=== PATIENT | female | born 1960 | race Caucasian/White ===

== ENCOUNTER 2024-08-15 19:39 | Emergency (ER) | payer OTHER ==
[~2024-08-15] VITALS: Ht 157.4 cm; Wt 63.5 kg
[2024-08-15] MEDS ORDERED: Ondansetron Hydrochloride 4 MG TAB SL ONE (20:25)
[2024-08-15] MEDS ORDERED: Acetaminophen/Hydrocodone 5 MG/325 MG TABLET PO ONE ×2 (20:25→21:25)
[2024-08-15] MEDS ORDERED: HYDROCODONE-AC1 EAC1 PO (21:18)
== END 2024-08-15 21:25 | disposition home or self-care (01) ==
LOC: ED 19:39
DX: S82.852A Displaced trimalleolar fracture of left lower leg, initial encounter for closed fracture (principal); S82.402A Unspecified fracture of shaft of left fibula, initial encounter for closed fracture; Z88.2 Allergy status to sulfonamides; Z88.8 Allergy status to other drugs, medicaments and biological substances; W22.03XA Walked into furniture, initial encounter; Y93.89 Activity, other specified; Y92.89 Other specified places as the place of occurrence of the external cause; Y99.8 Other external cause status

== ENCOUNTER 2024-08-22 17:15 | Emergency (ER) | payer OTHER ==
[~2024-08-22] VITALS: Wt 74.8 kg
[~2024-08-22 17:15] MED LIST changes: -ACETAMINOPHEN 100 ML IV ONE; -Bupivacaine Hydrochloride/Ep2 30 ML VIAL ONE; -Dexamethasone Sodium Phospha 4 MG/ML VIAL IV ONE; -Lactated Ringer's Solution 1,000 ML IV ONE; -Lactated Ringer's Solution 1,000 ML IV SCH; -Lidocaine Hydrochloride 2% 5 ML SDV IM ONE; -Midazolam Hydrochloride 2 MG/2 ML VIAL IV ONE; -Ondansetron Hydrochloride 4 MG/2 ML VIAL IV ONE; -PROPOFOL 200 MG/20 ML VIAL IV ONE; -Ropivacaine Hydrochloride 5 MG/ML 20 ML AMP IJ ONE; -SEVOFLURANE 250 ML BOT INH ONE; -ceFAZolin sodium/sodium chlor 20 ML IV ONE; -fentaNYL CITRATE/PF 50 MCG/ML SYRINGE IV PRN; -fentaNYL CITRATE/PF 50 MCG/ML SYRINGE ONE
[2024-08-22 17:45] LABS: BASO # 0.0 10*3/uL (0.0-0.1); BASO % 0.3 % (0.0-1.0); EOS # 0.0 10*3/uL (0.0-0.4); EOS % 0.1 % (1.0-4.0); MEAN CELL VOLUME 86.9 fl (81.0-99.0); MEAN CORPUSCULAR HGB 27.4 pg (27.0-31.0); MEAN PLATELET VOLUME 9.6 fl (9.6-12.3); MONO # 0.3 10*3/uL (0.1-1.0); MONO % 2.3 % (3.0-9.0); NEUT # 9.7 10*3/uL (2.3-7.9); NEUT % 88.6 % (47.0-73.0); NUCLEATED RED BLOOD CELL 0.0 % (0.0-0.0); NUCLEATED RED BLOOD CELL 0.0 10*3/uL (0.0-0.0); PLATELET COUNT AUTOMATED 193 10*3/uL (130-400); RED CELL DISTRI WIDTH 12.8 % (0-14.5)
[2024-08-22 17:56] LABS: ACT PARTIAL THROMBO TIME 30.6 SECONDS (20.0-32.1)
[2024-08-22] MEDS ORDERED: SODIUM CHLORIDE 0.9% 1,000 ML IV ONE (18:15)
[2024-08-22 18:19] LABS: BUN 18.0 mg/dl (9-23); SGPT/ALT 68.0 U/L (5-49)
[2024-08-22] MEDS ORDERED: SODIUM CHLORIDE 0.9% 100 ML BAG IV ONE (19:00)
[2024-08-22] MEDS ORDERED: IOHEXOL 350 MG/ML 100 ML VIAL IV ONE ×2 (19:00→19:25)
[2024-08-22] MEDS ORDERED: SODIUM CHLORIDE 0.9% 100 ML IV ONE (19:25)
[2024-08-22] MEDS ORDERED: HEPARIN SODIUM 250 ML IV ONE (19:40)
== END 2024-08-23 00:04 | disposition short-term general hospital (02) ==
LOC: ED 17:15
PROVIDERS: Internal Medicine
DX: I26.92 Saddle embolus of pulmonary artery without acute cor pulmonale (principal); I21.4 Non-ST elevation (NSTEMI) myocardial infarction; R74.01 Elevation of levels of liver transaminase levels; R73.9 Hyperglycemia, unspecified; Z98.890 Other specified postprocedural states; Z88.2 Allergy status to sulfonamides

== ENCOUNTER → 2024-08-22 | Day surgery (SDC) | payer OTHER ==
[2024-08-18 15:58] LABS: BUN 13 mg/dl (9-23)
[~2024-08-22] VITALS: Ht 157.4 cm; Wt 63.5 kg
[~2024-08-22] MED LIST: ACETAMINOPHEN 100 ML IV ONE; Bupivacaine Hydrochloride/Ep2 30 ML VIAL ONE; Dexamethasone Sodium Phospha 4 MG/ML VIAL IV ONE; HYDROCODONE-AC1 EAC1 PO; Lactated Ringer's Solution 1,000 ML IV ONE; Lactated Ringer's Solution 1,000 ML IV SCH; Lidocaine Hydrochloride 2% 5 ML SDV IM ONE; Midazolam Hydrochloride 2 MG/2 ML VIAL IV ONE; Ondansetron Hydrochloride 4 MG/2 ML VIAL IV ONE; PROPOFOL 200 MG/20 ML VIAL IV ONE; Ropivacaine Hydrochloride 5 MG/ML 20 ML AMP IJ ONE; SEVOFLURANE 250 ML BOT INH ONE; ceFAZolin sodium/sodium chlor 20 ML IV ONE; fentaNYL CITRATE/PF 50 MCG/ML SYRINGE IV PRN; fentaNYL CITRATE/PF 50 MCG/ML SYRINGE ONE
[2024-08-22 14:10] VITALS: BP 122/70
[2024-08-22 14:24] VITALS: BP 133/73
[2024-08-22 14:40] VITALS: BP 136/75
[2024-08-22 14:55] VITALS: BP 122/70
[2024-08-22 15:10] VITALS: BP 120/63
== END | disposition home or self-care (01) ==
LOC: SDC 08-18 14:45
PROVIDERS: ATTEND Orthopaedic Surgery
DX: S82.852A Displaced trimalleolar fracture of left lower leg, initial encounter for closed fracture (principal); M85.80 Other specified disorders of bone density and structure, unspecified site; Z88.8 Allergy status to other drugs, medicaments and biological substances; Z98.51 Tubal ligation status

== ENCOUNTER → 2024-09-06 | Outpatient (CLI) | payer OTHER | END | disposition home or self-care (01) | LOC: ORTHO 02:29 | PROVIDERS: ATTEND Orthopaedic Surgery | DX: S82.852D Displaced trimalleolar fracture of left lower leg, subsequent encounter for closed fracture with routine healing (principal); Z98.890 Other specified postprocedural states; X58.XXXD Exposure to other specified factors, subsequent encounter ==

== ENCOUNTER → 2024-10-09 | Outpatient (CLI) | payer OTHER ==
[2024-10-09 17:04] LABS: BUN 13 mg/dl (9-23); SGPT/ALT 19 U/L (5-49)
== END | disposition home or self-care (01) ==
LOC: LAB 16:08
PROVIDERS: ATTEND Physician Assistant Medical
DX: I26.99 Other pulmonary embolism without acute cor pulmonale (principal); R74.01 Elevation of levels of liver transaminase levels

== ENCOUNTER → 2024-11-30 | Outpatient (CLI) | payer OTHER | END | disposition home or self-care (01) | LOC: CARD 00:16 | PROVIDERS: ATTEND Physician Assistant Medical | DX: I26.99 Other pulmonary embolism without acute cor pulmonale (principal) ==

== ENCOUNTER → 2025-01-01 | Outpatient (CLI) | payer OTHER | END | disposition home or self-care (01) | LOC: ORTHO 01:04 | PROVIDERS: ATTEND Orthopaedic Surgery | DX: S82.852D Displaced trimalleolar fracture of left lower leg, subsequent encounter for closed fracture with routine healing (principal); M25.872 Other specified joint disorders, left ankle and foot; X58.XXXD Exposure to other specified factors, subsequent encounter ==

== ENCOUNTER → 2025-01-09 | Outpatient (CLI) | payer OTHER | END | disposition home or self-care (01) | LOC: RAD 03:21 | PROVIDERS: ATTEND Orthopaedic Surgery | DX: M85.89 Other specified disorders of bone density and structure, multiple sites (principal) ==